=== PATIENT | female | born 2000 | race Caucasian/White ===

== ENCOUNTER → 2021-06-03 | Outpatient (CLI) | payer OTHER ==
[2021-06-03 13:54] LABS: BASO % 0.5 % (0.0-1.0); EOS # 0.1 10^3/uL (0.0-0.5); EOS % 0.8 % (0.0-3.0); HEMATOCRIT 40.1 % (36.0-47.0); HEMOGLOBIN 13.2 g/dl (12.0-15.5); LYMPH # 3.5 10^3/uL (1.5-5.0); LYMPH % 56.5 % (24.0-44.0); MEAN CORPUSCULAR HEMOGLOBIN 29.5 pg (27.0-33.0); MEAN CORPUSCULAR HGB CONC 32.9 g/dl (32.0-36.5); MEAN CORPUSCULAR VOLUME 89.7 fl (80.0-96.0); MONO # 0.5 10^3/uL (0.0-0.8); MONO % 8.4 % (2.0-8.0); NEUTROPHILS # 2.1 10^3/uL (1.5-8.5); NEUTROPHILS % 33.6 % (36.0-66.0); PLATELET COUNT, AUTOMATED 276 10^3/uL (150-450); RED BLOOD COUNT 4.47 10^6/uL (4.00-5.40); WHITE BLOOD COUNT 6.2 10^3/uL (4.0-10.0)
[2021-06-03 14:37] LABS: FREE T4 1.01 NG/DL (0.76-1.46)
[2021-06-03 14:57] LABS: HEMOGLOBIN A1c 5.3 %
[2021-06-03 15:09] LABS: HIV 1&2 SCREEN CENTAUR NEGATIVE (NEGATIVE)
[2021-06-03 15:49] LABS: GC DNA AMPLIFICATION NEGATIVE (NEGATIVE)
== END ==
LOC: M PLALAB 10:51
PROVIDERS: ATTEND Advanced Practice Midwife
DX: Z36.89 Encounter for other specified antenatal screening (principal); Z3A.09 9 weeks gestation of pregnancy

== ENCOUNTER → 2021-07-01 | Outpatient (REF) | payer OTHER | LOC: M SFHCWAGY 13:05 | PROVIDERS: ATTEND Obstetrics & Gynecology | DX: Z34.81 Encounter for supervision of other normal pregnancy, first trimester (principal) ==

== ENCOUNTER → 2021-07-29 | Outpatient (REF) | payer OTHER ==
[2021-07-29 19:33] LABS: GC DNA AMPLIFICATION NEGATIVE (NEGATIVE)
== END ==
LOC: M SFHCWAGY 17:06
PROVIDERS: ATTEND Obstetrics & Gynecology
DX: Z34.92 Encounter for supervision of normal pregnancy, unspecified, second trimester (principal)
CPT/HCPCS: 87491; 87591; 90471; 90686; G0463

== ENCOUNTER → 2021-08-19 | Outpatient (CLI) | payer OTHER ==
--- NOTE | 2021-08-19 15:54 | REP ---
INDICATION: ANATOMY COMPARISON: None. TECHNIQUE: Transabdominal obstetrical ultrasound with color Doppler evaluation. FINDINGS: Examination demonstrates a single live intrauterine in variable presentation. motion is identified by technologist. Placenta is noted posterior and grade 1 without evidence for placenta previa or abruption. Amniotic fluid volume is normal. Cervix measures 4.7 cm in length and appears closed.. Selected gestational age: 20 weeks 2 days with SARAH 01/04/2022. Gestational age by current measurements 20 weeks 3 days with SARAH 01/03/2022. FHR equals 153 beats per minute. Estimated weight 339 grams. Anatomical assessment demonstrates normal structures including cranium, choroid plexus, cavum, cerebellum/posterior fossa, facial features, lungs, four-chamber heart/ventricular outflow tracts, diaphragm, stomach, cord insertion/three-vessel cord, kidneys/bladder, spine, and extremities. IMPRESSION: Single live intrauterine in variable presentation. Anatomical assessment is complete and normal. <Electronically signed by Petr Nava > 08/19/21 [id number]
== END ==
LOC: M WHC 14:01
PROVIDERS: ATTEND Obstetrics & Gynecology
DX: Z36.9 Encounter for antenatal screening, unspecified (principal); Z3A.20 20 weeks gestation of pregnancy

== ENCOUNTER → 2021-10-02 | Outpatient (CLI) | payer OTHER ==
[2021-10-02 15:17] LABS: HEMATOCRIT 38.8 % (36.0-47.0); HEMOGLOBIN 12.7 g/dl (12.0-15.5); MEAN CORPUSCULAR HEMOGLOBIN 30.6 pg (27.0-33.0); MEAN CORPUSCULAR HGB CONC 32.7 g/dl (32.0-36.5); MEAN CORPUSCULAR VOLUME 93.5 fl (80.0-96.0); PLATELET COUNT, AUTOMATED 269 10^3/uL (150-450); RED BLOOD COUNT 4.15 10^6/uL (4.00-5.40); WHITE BLOOD COUNT 8.6 10^3/uL (4.0-10.0)
[2021-10-02 17:05] LABS: GC DNA AMPLIFICATION NEGATIVE (NEGATIVE)
== END ==
LOC: M PLALAB 12:16
PROVIDERS: ATTEND Specialist
DX: Z36.89 Encounter for other specified antenatal screening (principal); Z3A.00 Weeks of gestation of pregnancy not specified
CPT/HCPCS: 36415; 82950; 85027; 87491; 87591; G0463

== ENCOUNTER → 2021-12-12 | Outpatient (REF) | payer OTHER ==
[~2021-12-12] MED LIST: PRENTAB9 PO
== END ==
LOC: M SFHCWAGY 12:55
PROVIDERS: ATTEND Obstetrics & Gynecology
DX: Z36.85 Encounter for antenatal screening for Streptococcus B (principal); Z3A.36 36 weeks gestation of pregnancy

== ENCOUNTER 2021-12-15 10:04 | Outpatient (CLI) | payer OTHER ==
[~2021-12-15] VITALS: Ht 165.1 cm; Wt 84.1 kg
[2021-12-15] VITALS (21 sets, daily range): BP systolic 76–130; BP diastolic 37–77
[2021-12-15] MEDS ORDERED: PRENTAB9 PO (10:36)
[2021-12-15] MEDS ORDERED: LACTATED RINGER'S 1000 ML IV STA (10:38)
[2021-12-15] MEDS ORDERED: HOME MED LIST COMPLETE! XX SCH (10:40)
[2021-12-15 11:13] LABS: HEMOGLOBIN 12.8 g/dl (12.0-15.5); MEAN CORPUSCULAR HEMOGLOBIN 31.1 pg (27.0-33.0); MEAN CORPUSCULAR HGB CONC 33.7 g/dl (32.0-36.5); MEAN CORPUSCULAR VOLUME 92.2 fl (80.0-96.0); PLATELET COUNT, AUTOMATED 252 10^3/uL (150-450); RED BLOOD COUNT 4.12 10^6/uL (4.00-5.40); WHITE BLOOD COUNT 7.6 10^3/uL (4.0-10.0)
[2021-12-15] MEDS ORDERED: FENTANYL 2MCG/ML ROPIVACAINE 0.2% IN 0.9% NACL 100ML IVBAG As Ordered ONE (11:59)
[2021-12-15] MEDS ORDERED: TERBUTALINE SULFATE 1 MG/ML VIAL (J3105) SC ONE (12:00)
[2021-12-15] MEDS: LR 1,000 ML IV SCH ×2 (12:00→13:23)
[2021-12-15] MEDS ORDERED: EPIDURAL COMMENT XX SCH (12:10)
[2021-12-15] MEDS ORDERED: LACTATED RINGER'S 1000 ML IV PRN (12:10)
[2021-12-15] MEDS ORDERED: REFRIGERATOR IV KEYS XX PRN (12:10)
[2021-12-15] MEDS ORDERED: EPIDURAL/PCA KEYS XX PRN (12:10)
[2021-12-15] MEDS ORDERED: diphenhydrAMINE 50MG/ML VIAL (J1200) IV PRN (12:10)
[2021-12-15] MEDS ORDERED: ePHEDrine SULFATE 25 MG/5 ML(5MG/ML) SYRINGE IV PRN (12:10)
[2021-12-15] MEDS ORDERED: ONDANSETRON 4MG/2ML VIAL IV PRN (12:10)
[2021-12-15] MEDS ORDERED: NALOXONE INJ 0.4MG/1ML VIAL (J2310 PER 1MG) IV PRN (12:10)
[2021-12-15] MEDS ORDERED: FENTANYL/ROPIVACAINE/NACL BAG 100 ML EPIDURAL SCH (12:10)
== END 2021-12-15 16:05 | disposition home or self-care (01) ==
LOC: M LDO 10:04
PROVIDERS: ATTEND Advanced Practice Midwife
DX: O32.1XX0 Maternal care for breech presentation, not applicable or unspecified (principal); Z3A.37 37 weeks gestation of pregnancy
CPT/HCPCS: 36415; 59025; 59412; 76815; 85027; 86850; 86900; 86901; 87426; 96360; 96361; 96372; G0463; J3105

== ENCOUNTER 2021-12-21 19:31 | Outpatient (CLI) | payer OTHER ==
[~2021-12-21] VITALS: Ht 165.1 cm; Wt 84.5 kg
[2021-12-21 19:46] VITALS: BP 134/78
[2021-12-21 21:41] VITALS: BP 127/73
== END 2021-12-21 21:50 | disposition home or self-care (01) ==
LOC: M LDO 19:31
PROVIDERS: ATTEND Specialist
DX: O60.03 Preterm labor without delivery, third trimester (principal); Z3A.38 38 weeks gestation of pregnancy
CPT/HCPCS: 59025; G0463

== ENCOUNTER 2021-12-23 20:22 | Outpatient (CLI) | payer OTHER ==
[~2021-12-23] VITALS: Ht 165.1 cm; Wt 85.0 kg
[2021-12-23] MEDS ORDERED: HOME MED LIST COMPLETE! XX SCH (20:35)
[2021-12-23 20:36] VITALS: BP 140/85
[2021-12-23 20:49] VITALS: BP 101/55
[2021-12-23 21:47] VITALS: BP 114/65
== END 2021-12-23 22:14 | disposition home or self-care (01) ==
LOC: M LDO 20:22
PROVIDERS: ATTEND Obstetrics & Gynecology
DX: O60.03 Preterm labor without delivery, third trimester (principal); Z3A.38 38 weeks gestation of pregnancy
CPT/HCPCS: 59025; G0463

== ENCOUNTER 2021-12-26 20:35 | Outpatient (CLI) | payer OTHER ==
[~2021-12-26] VITALS: Ht 165.1 cm; Wt 85.1 kg
[2021-12-26 20:56] VITALS: BP 125/79
== END 2021-12-26 21:20 | disposition home or self-care (01) ==
LOC: M LDO 20:35
PROVIDERS: ATTEND Obstetrics & Gynecology
DX: O47.1 False labor at or after 37 completed weeks of gestation (principal); Z3A.38 38 weeks gestation of pregnancy
CPT/HCPCS: 59025; G0463

== ENCOUNTER 2021-12-30 11:21 | Outpatient (CLI) | payer OTHER ==
[~2021-12-30] VITALS: Ht 165.1 cm; Wt 85.3 kg
[2021-12-30 11:37] VITALS: BP 120/73
[2021-12-30] MEDS ORDERED: HOME MED LIST COMPLETE! XX SCH (11:40)
== END 2021-12-30 12:46 | disposition home or self-care (01) ==
LOC: M LDO 11:21
PROVIDERS: ATTEND Obstetrics & Gynecology
DX: O60.03 Preterm labor without delivery, third trimester (principal); Z3A.39 39 weeks gestation of pregnancy
CPT/HCPCS: 59025; 76815; G0463

== ENCOUNTER 2022-01-04 10:03 | Inpatient (IN) | payer OTHER ==
[~2022-01-04] VITALS: Ht 165.1 cm; Wt 84.5 kg
[2022-01-04] VITALS (12 sets, daily range): BP systolic 110–155; BP diastolic 56–71
[2022-01-04] MEDS ORDERED: OXYTOCIN DRIP 30 UNITS in IV 1 EA IV SCH ×2 (11:05→21:50)
[2022-01-04] MEDS ORDERED: LIDOCAINE 1% MDV 20ML VIAL INFIL PRN (11:05)
[2022-01-04] MEDS ORDERED: OXYTOCIN DRIP 30 UNITS in IV 1 EA IV PRN (11:05)
[2022-01-04] MEDS ORDERED: LR 1,000 ML IV SCH (11:05)
[2022-01-04] MEDS ORDERED: METHYLERGONOVINE MALEATE 0.2 MG/ML VIAL (J2210) IM PRN (11:05)
[2022-01-04] MEDS ORDERED: CARBOPROST TROMETHAMINE 250 MCG/ML AMP IM PRN (11:05)
[2022-01-04 12:09] LABS: HEMATOCRIT 41.7 % (36.0-47.0); HEMOGLOBIN 14.3 g/dl (12.0-15.5); MEAN CORPUSCULAR HEMOGLOBIN 31.3 pg (27.0-33.0); MEAN CORPUSCULAR HGB CONC 34.3 g/dl (32.0-36.5); MEAN CORPUSCULAR VOLUME 91.2 fl (80.0-96.0); PLATELET COUNT, AUTOMATED 259 10^3/uL (150-450); RED BLOOD COUNT 4.57 10^6/uL (4.00-5.40); WHITE BLOOD COUNT 7.9 10^3/uL (4.0-10.0)
[2022-01-04 12:25] LABS: ALT/SGPT 20 U/L (12-78); BILIRUBIN,TOTAL 0.4 MG/DL (0.2-1.0); GLOMERULAR FILTRATION RATE > 60.0 (>60); LDH LACTATE DEHYDROGENASE 184 U/L (84-246); URIC ACID 4.8 MG/DL (2.6-6.0)
[2022-01-04 12:38] LABS: CREATININE,RANDOM URINE 39.5 MG/DL
[2022-01-04] MEDS ORDERED: FENTANYL 2MCG/ML ROPIVACAINE 0.2% IN 0.9% NACL 100ML IVBAG As Ordered ONE (17:16)
[2022-01-04] MEDS ORDERED: LACTATED RINGER'S 1000 ML IV PRN (17:30)
[2022-01-04] MEDS ORDERED: REFRIGERATOR IV KEYS XX PRN (17:30)
[2022-01-04] MEDS ORDERED: ONDANSETRON 4MG/2ML VIAL IV PRN (17:30)
[2022-01-04] MEDS ORDERED: diphenhydrAMINE 50MG/ML VIAL (J1200) IV PRN (17:30)
[2022-01-04] MEDS ORDERED: NALOXONE INJ 0.4MG/1ML VIAL (J2310 PER 1MG) IV PRN (17:30)
[2022-01-04] MEDS ORDERED: FENTANYL/ROPIVACAINE/NACL BAG 100 ML EPIDURAL SCH (17:30)
[2022-01-04] MEDS ORDERED: EPIDURAL COMMENT XX SCH (17:30)
[2022-01-04] MEDS ORDERED: EPIDURAL/PCA KEYS XX PRN (17:30)
[2022-01-04] MEDS ORDERED: ePHEDrine SULFATE 25 MG/5 ML(5MG/ML) SYRINGE IV PRN (17:30)
[2022-01-04] MEDS ORDERED: DIBUCAINE 1% OINTMENT 30GM TOP PRN (21:50)
[2022-01-04] MEDS ORDERED: MEASLES,MUMPS,RUBELLA VACCINE INJ (MMR-II) (90707) SC SCH (21:50)
[2022-01-04] MEDS ORDERED: RHOGAM 300 MCG (1500 IU) INJ (J2790) IM SCH (21:50)
[2022-01-04] MEDS ORDERED: IBUPROFEN 600MG TAB PO PRN (21:50)
[2022-01-04] MEDS ORDERED: DOCUSATE SODIUM 100MG CAPSULE PO PRN (21:50)
[2022-01-04] MEDS ORDERED: ACETAMINOPHEN TAB 650MG DOSE (2X325MG) PO PRN (21:50)
[2022-01-04] MEDS ORDERED: METHYLERGONOVINE MALEATE 0.2 MG TAB PO PRN (21:50)
[2022-01-04] MEDS ORDERED: MOM 30ML SUSPENSION UDC PO PRN (21:50)
[2022-01-04] MEDS ORDERED: ANUSOL HC CREAM 30GM TOP PRN (21:50)
[2022-01-04] MEDS ORDERED: ACETAMINOPHEN 500 MG TAB PO PRN (21:50)
[2022-01-05 00:05] VITALS: BP 142/67
[2022-01-05] MEDS: IBUPROFEN 800 MG TAB PO PRN ×2 (05:29→16:46)
[2022-01-05 05:49] VITALS: BP 118/56
[2022-01-05] MEDS: PRENATAL VITAMINS CHEWABLE TABLET PO SCH (08:19)
[2022-01-05 17:58] VITALS: BP 113/56
[2022-01-06 06:00] VITALS: BP 128/76
[2022-01-06] MEDS: PRENATAL VITAMINS CHEWABLE TABLET PO SCH (08:40)
== END 2022-01-06 17:00 | disposition home or self-care (01) | DRG 807 ==
LOC: M LDI 10:03 → M OBS 01-05
PROVIDERS: ADMIT Obstetrics & Gynecology; ATTEND Obstetrics & Gynecology
PROC: 10E0XZZ Delivery of Products of Conception, External Approach (ICD-10-PCS; principal; 2022-01-04)
PROC: 3E033VJ Introduction of Other Hormone into Peripheral Vein, Percutaneous Approach (ICD-10-PCS; 2022-01-04)
DX: O13.4 Gestational [pregnancy-induced] hypertension without significant proteinuria, complicating childbirth (principal); Z37.0 Single live birth; Z3A.40 40 weeks gestation of pregnancy; O69.81X0 Labor and delivery complicated by cord around neck, without compression, not applicable or unspecified